=== PATIENT | male | born 1950 ===

== ENCOUNTER 2020-11-25 18:21 | Inpatient (IN) | payer OTHER ==
[~2020-11-25] VITALS: Ht 154.9 cm; Wt 47.3 kg
[2020-11-25] MEDS ORDERED: HYDROMORPHONE 1 MG/1 ML DISP.SYRIN IV ONE ×2 (18:30→19:15)
[2020-11-25] MEDS ORDERED: IV NORMAL SALINE 500 ML BAG IV ONE (18:30)
[2020-11-25] MEDS ORDERED: ONDANSETRON 4 MG/2 ML VIAL IV ONE (18:30)
[2020-11-25] MEDS ORDERED: FERR325T30 PO (18:33)
[2020-11-25] MEDS ORDERED: AMLO10TA4 PO (18:33)
[2020-11-25] MEDS ORDERED: TRAM50TA2 PO (18:33)
[2020-11-25] MEDS ORDERED: QUET50TA PO (18:33)
[2020-11-25] MEDS ORDERED: SITA100T PO (18:33)
[2020-11-25] MEDS ORDERED: CARV6.25 PO (18:33)
[2020-11-25] MEDS ORDERED: ASPI81TA31 PO (18:33)
[2020-11-25] MEDS ORDERED: ISOS60TA72 PO (18:33)
[2020-11-25] MEDS ORDERED: PANT40TA2 PO (18:33)
[2020-11-25] MEDS ORDERED: MEMA10TA PO (18:33)
[2020-11-25] MEDS ORDERED: HYDR-4077 PO (18:33)
[2020-11-25] MEDS ORDERED: ATOR10TA PO (18:33)
[2020-11-25] MEDS ORDERED: HYDROMORPHONE 2 MG/1 ML DISP.SYRIN ONE (18:40)
[2020-11-25] MEDS ORDERED: ONDANSETRON 4 MG/2 ML VIAL ONE (18:40)
[2020-11-25 18:43] LABS: BASOPHILS % (AUTO) 0.6 % (0.0-2.0); EOSINOPHILS # (AUTO) 0.1 K/uL (0.0-0.7); LYMPHOCYTES # (AUTO) 0.6 K/uL (20.0-40.0); NEUTROPHILS # (AUTO) 4.6 K/uL (1.8-8.9)
[2020-11-25 18:45] LABS: EOSINOPHILS % (AUTO) 1.2 % (0.0-7.0); LYMPHOCYTES % (AUTO) 9.6 % (20.5-51.5); MEAN CORPUSCULAR HEMOGLOBIN 32.3 uug (23.8-33.4); MEAN CORPUSCULAR HGB CONC 33 g/dL (32.5-36.3); MEAN CORPUSCULAR VOLUME 97.9 fL (73.0-96.2); MONOCYTES # (AUTO) 0.6 K/uL (2.0-10.0); MONOCYTES % (AUTO) 10.2 % (0.0-11.0); NEUTROPHILS % (AUTO) 78.4 % (38.5-71.5); PLATELET COUNT (AUTO) 169 K/uL (152-348); WHITE BLOOD COUNT (AUTO) 5.9 K/uL (3.6-10.2)
[2020-11-25 18:49] LABS: CARBON DIOXIDE 15 mmol/L (21-32); CHLORIDE 106 mmol/L (98-107); CREATININE 2.5 mg/dL (0.6-1.3); GLUCOSE 182 mg/dL (74-106); UREA NITROGEN, BLOOD 36 mg/dL (7-18)
[2020-11-25 18:56] LABS: ALANINE AMINOTRANSFERASE 21 U/L (16-63); ALKALINE PHOSPHATASE 163 U/L (50-136); ASPARTATE AMINOTRANSFERASE 20 U/L (15-37); BILIRUBIN,DIRECT 0.1 mg/dL (0.0-0.2); BILIRUBIN,TOTAL 0.3 mg/dL (0.2-1.0); TOTAL PROTEIN, SERUM 6.8 g/dL (6.4-8.2)
[2020-11-25 18:57] LABS: RED BLOOD CELL COUNT(AUTO) 1.78 MIL/uL (4.06-5.63)
[2020-11-25 18:58] LABS: HEMATOCRIT 17.4 % (36.7-47.1); HEMOGLOBIN 5.8 g/dL (12.5-16.3)
--- NOTE | 2020-11-25 19:00 | NUR ---
Hgb: 5.8, Hct: 17.[address] Cadena aware. [facility] paged for Dr Cadena. Dr Newman will call back.
--- NOTE | 2020-11-25 19:05 | NUR ---
Recieved reprt from Bernice CHRISTIANSON
[2020-11-25 19:23] LABS: BASOPHILS % (AUTO) 0.7 % (0.0-2.0); EOSINOPHILS # (AUTO) 0.1 K/uL (0.0-0.7); EOSINOPHILS % (AUTO) 1.3 % (0.0-7.0); LYMPHOCYTES # (AUTO) 0.6 K/uL (20.0-40.0); LYMPHOCYTES % (AUTO) 8.9 % (20.5-51.5); MEAN CORPUSCULAR HEMOGLOBIN 32.6 uug (23.8-33.4); MEAN CORPUSCULAR HGB CONC 34 g/dL (32.5-36.3); MEAN CORPUSCULAR VOLUME 96.2 fL (73.0-96.2); MONOCYTES # (AUTO) 0.7 K/uL (2.0-10.0); MONOCYTES % (AUTO) 9.8 % (0.0-11.0); NEUTROPHILS # (AUTO) 5.5 K/uL (1.8-8.9); NEUTROPHILS % (AUTO) 79.3 % (38.5-71.5); PLATELET COUNT (AUTO) 207 K/uL (152-348); RED BLOOD CELL COUNT(AUTO) 2.16 MIL/uL (4.06-5.63)
[2020-11-25 19:26] LABS: HEMATOCRIT 20.8 % (36.7-47.1); HEMOGLOBIN 7.1 g/dL (12.5-16.3)
--- NOTE | 2020-11-25 19:46 | NUR ---
Called to request bed for telemetry status
--- NOTE | 2020-11-25 19:49 | NUR ---
Paged Dr. Natarajan on-call for pt's Lt hip fx.
--- NOTE | 2020-11-25 19:53 | NUR ---
Dr. Cadena spoke with Dr. Natarajan.
[2020-11-25] MEDS ORDERED: INSULIN REGULAR, HUMAN 300 UNIT/3 ML VIAL IV ONE (20:15)
[2020-11-25] MEDS ORDERED: DEXTROSE 50% 50 ML DISP.SYRIN IV ONE (20:15)
[2020-11-25] MEDS ORDERED: SODIUM POLYSTYRENE SULFONATE 15 G/60 ML LIQUID UDC PO ONE (20:15)
[2020-11-25] MEDS ORDERED: INSULIN REGULAR, HUMAN 300 UNIT/3 ML VIAL ONE (20:20)
[2020-11-25] MEDS ORDERED: DEXTROSE 50% 50 ML DISP.SYRIN ONE (20:20)
[2020-11-25] MEDS ORDERED: SODIUM POLYSTYRENE SULFONATE 15 G/60 ML LIQUID UDC ONE (20:47)
--- NOTE | 2020-11-25 20:56 | NUR ---
SBAR report given to Dianelys CHRISTIANSON
--- NOTE | 2020-11-25 20:57 | NUR ---
pt refused for nurse to look at sacral coccyx area, no open wounds or abrasions noted to heels or dara prominces.
--- NOTE | 2020-11-25 21:19 | NUR ---
Pt taken to Tele unit via gurney. Gama catheter inserted prior to pt transfer.
--- NOTE | 2020-11-25 21:20 | NUR ---
Admitted a 70 years old male with DX of Left femur fracture and Anemia. Patient AAOx3, Mongolian speaking but able to understand and speak little East Timorese. In no acute distress. Denies any pain or SOB at this time. Some pain with movement but relieved with immobility. IV site on right FA intact and patient. Patient due for blood transfusion of 1 unit PRBC and will provide it. Gama catheter intact and draining via gravity. NSR on tele at 65/min. Routine admission care done. Plan of care initiated. Safety measure initiated and call aponte within reached.
[2020-11-25 22:00] VITALS: BP 106/65
[2020-11-25 22:15] VITALS: BP 109/48
[2020-11-25 22:30] VITALS: BP 107/48
[2020-11-25 22:45] VITALS: BP 115/48
[2020-11-25 23:15] VITALS: BP 122/49
[2020-11-25 23:45] VITALS: BP 111/57
[2020-11-26] VITALS (8 sets, daily range): BP systolic 106–137; BP diastolic 43–65
[2020-11-26] MEDS: MORPHINE SULFATE 2 MG/1 ML DISP.SYRIN IV PRN ×4 (00:07→16:25)
--- NOTE | 2020-11-26 01:00 | NUR ---
Noted patient vasquez catheter pulled out. Tried to reinsert new vasquez catheter but unsuccessful, felt resistance. Will try to reinsert during the day.
--- NOTE | 2020-11-26 01:00 | NUR ---
Blood transfusion of 1 unit PRBC completed. No adverse reaction noted.
--- NOTE | 2020-11-26 05:56 | NUR ---
AAOx3. In no acute distress. Denies any SOB. Morphine 2mg IV given for complain of left hip pain and with helped. IV site on right FA remains intact and patient. NSR on tele at 71/min. Needs attended to and met. Safety measure maintained and call aponte within reached.
--- NOTE | 2020-11-26 08:00 | NUR ---
PT seen and clear by second language tutor Dr. Bonds.
[2020-11-26] MEDS ORDERED: ACETAMINOPHEN 650 MG SUPP.RECT RC PRN (08:15)
[2020-11-26] MEDS ORDERED: ONDANSETRON 4 MG/2 ML VIAL IV PRN (08:15)
[2020-11-26] MEDS: ISOSORBIDE MONONITRATE 30 MG TAB.SR.24H PO SCH (08:37)
[2020-11-26] MEDS: FERROUS SULFATE 325 MG TABEC PO SCH (08:37)
[2020-11-26] MEDS: MEMANTINE HCL 5 MG TABLET PO SCH ×2 (08:38→16:24)
[2020-11-26] MEDS: hydrALAZINE HCL 50 MG TABLET PO SCH ×2 (08:38→16:24)
[2020-11-26] MEDS: CARVEDILOL 6.25 MG TABLET PO SCH ×2 (08:38→17:33)
[2020-11-26] MEDS: PANTOPRAZOLE SODIUM 40 MG VIAL IV SCH (08:39)
[2020-11-26 09:00] LABS: BASOPHILS % (AUTO) 0.2 % (0.0-2.0); EOSINOPHILS % (AUTO) 0.2 % (0.0-7.0); HEMATOCRIT 27.6 % (36.7-47.1); HEMOGLOBIN 9.4 g/dL (12.5-16.3); LYMPHOCYTES # (AUTO) 0.6 K/uL (20.0-40.0); LYMPHOCYTES % (AUTO) 5.8 % (20.5-51.5); MEAN CORPUSCULAR HEMOGLOBIN 31.7 uug (23.8-33.4); MEAN CORPUSCULAR HGB CONC 34 g/dL (32.5-36.3); MEAN CORPUSCULAR VOLUME 92.8 fL (73.0-96.2); MONOCYTES # (AUTO) 0.7 K/uL (2.0-10.0); MONOCYTES % (AUTO) 6.8 % (0.0-11.0); NEUTROPHILS # (AUTO) 9.2 K/uL (1.8-8.9); PLATELET COUNT (AUTO) 196 K/uL (152-348); RED BLOOD CELL COUNT(AUTO) 2.97 MIL/uL (4.06-5.63); WHITE BLOOD COUNT (AUTO) 10.6 K/uL (3.6-10.2)
[2020-11-26] MEDS ORDERED: MEMANTINE HCL 10 MG TABLET PO SCH (09:00)
[2020-11-26] MEDS ORDERED: AMLODIPINE 10 MG TABLET PO SCH (09:00)
[2020-11-26] MEDS ORDERED: ISOSORBIDE MONONITRATE 60 MG TAB.SR.24H PO SCH (09:00)
[2020-11-26] MEDS ORDERED: PANTOPRAZOLE SODIUM 40 MG TABLET.DR PO SCH (09:00)
[2020-11-26 09:18] LABS: ALANINE AMINOTRANSFERASE 20 U/L (16-63); ALKALINE PHOSPHATASE 153 U/L (50-136); ASPARTATE AMINOTRANSFERASE 18 U/L (15-37); BILIRUBIN,TOTAL 0.6 mg/dL (0.2-1.0); CARBON DIOXIDE 16 mmol/L (21-32); CHLORIDE 107 mmol/L (98-107); CREATININE 2.6 mg/dL (0.6-1.3); GLUCOSE 132 mg/dL (74-106); MAGNESIUM 2.2 mg/dL (1.8-2.4); PHOSPHOROUS 4.8 mg/dL (2.5-4.9); POTASSIUM 4.6 mmol/L (3.5-5.1); TOTAL PROTEIN, SERUM 6.5 g/dL (6.4-8.2); UREA NITROGEN, BLOOD 36 mg/dL (7-18)
[2020-11-26 09:25] LABS: THYROID STIMULATING HORMONE 1.458 mIU/mL (0.358-3.740)
[2020-11-26 09:42] LABS: CHOLESTEROL 109 mg/dL (<200); HDL CHOLESTEROL 45 mg/dL (40-60); TRIGLYCERIDES 40 MG/DL (30-150)
--- NOTE | 2020-11-26 10:00 | NUR ---
A call from OR. staff and as informed pt. will undergo surgery tomorrow at around [address] Natarajan's call with orders.
--- NOTE | 2020-11-26 10:54 | NUR ---
Patient completely immobile lying on his right side, avoiding to be moved, pt. educated on side effects of immobility. High risk to develop pressure sores. Patient been medicated around the clock for pain. At this time refusing to have a vasquez catheter inserted.
--- NOTE | 2020-11-26 11:18 | NUR ---
WOUND CARE CONSULT: PT REFUSED TO TURN FOR FULL SKIN ASSESSMENT. PT LYING ON HIS RT SIDE. RT 3RD TOE NOTED TO HAVE DISCOLORATION, PRESENT ON ADMISSION. RECOMMEND DPM CONSULT. DR DENNY NOTIFIED OF CONSULT REQUEST. RECOMMENDATIONS MADE FOR SKIN PROTECTION. DISCUSSED WITH NURSING STAFF. MD IN AGREEMENT WITH PLAN OF CARE.
[2020-11-26] MEDS ORDERED: MINERAL OIL/PETROLATUM,WHITE 57 GM TUBE TOP PRN (16:30)
[2020-11-26] MEDS: QUETIAPINE FUMARATE 25 MG TABLET PO SCH (17:33)
--- NOTE | 2020-11-26 18:56 | NUR ---
pt. left in bed resting. Neurowise, AAOx2. vitals stable. Medicated for pain., pt. barely tolerating to be repositioned and refusing. Gama catheter to gravity. To be placed NPO past MN as ordered by attending Dr. Downey.
--- NOTE | 2020-11-26 18:58 | NUR ---
Patient left in bed sleeping, neuro-clifford following commands, and compliant with medications. Hemodynamically stable, sbp within desired limits. Afebrile. Tolerating diet well with no n/v/or D. No pressure sores, 1:1 sitter at bedside.
--- NOTE | 2020-11-26 20:30 | NUR ---
Patient in bed alert and able to make needs known. Greenlandic speaking. Denies pain at this time. No s/s of distress noted. On RA.Gama catheter draining well with clear urine output.Iv on left FA patent and intact.Obtained consent via phone from patient's brother Gigi [phone] for Left hip ORIF tomorrow. Patient made aware and will place NPO after midnight.Will continue to to monitor.
[2020-11-26] MEDS: ATORVASTATIN 10 MG TABLET PO SCH (20:41)
[2020-11-26] MEDS: ACETAMINOPHEN 325 MG TABLET PO PRN (20:41)
[2020-11-27] VITALS (8 sets, daily range): BP systolic 104–139; BP diastolic 47–54
[2020-11-27] MEDS: MORPHINE SULFATE 2 MG/1 ML DISP.SYRIN IV PRN ×5 (04:24→23:47)
[2020-11-27 06:01] LABS: *BILIRUBIN,URIN NEGATIVE (NEGATIVE); *CLARITY,URINE CLEAR (CLEAR); *COLOR,URINE YELLOW (YELLOW); *KETONES,URINE NEGATIVE (NEGATIVE); *UROBILINOGEN,URINE 0.2 E.U./dl (NORMAL); LEUKOCYTE ESTERASE ,URINE NEGATIVE (NEGATIVE); NITRITE, URINE NEGATIVE (NEGATIVE); UGLUCOSE NEGATIVE (NEGATIVE)
[2020-11-27 06:05] LABS: *BLOOD, URINE TRACE (NEGATIVE); BACTERIA,URINE FEW /HPF (NONE SEEN); SQUAMOUS EPITHELIAL CELL,UR FEW /HPF (NONE SEEN)
[2020-11-27 06:06] LABS: MUCUS,URINE FEW /LPF (0-FEW); URINE AMORPHOUS URATE FEW /HPF
[2020-11-27 07:13] LABS: BASOPHILS % (AUTO) 0.5 % (0.0-2.0); EOSINOPHILS # (AUTO) 0.1 K/uL (0.0-0.7); EOSINOPHILS % (AUTO) 0.8 % (0.0-7.0); HEMATOCRIT 24.8 % (36.7-47.1); HEMOGLOBIN 8.7 g/dL (12.5-16.3); LYMPHOCYTES # (AUTO) 0.7 K/uL (20.0-40.0); MEAN CORPUSCULAR HEMOGLOBIN 31.9 uug (23.8-33.4); MEAN CORPUSCULAR HGB CONC 35 g/dL (32.5-36.3); MEAN CORPUSCULAR VOLUME 91.3 fL (73.0-96.2); MONOCYTES # (AUTO) 0.6 K/uL (2.0-10.0); NEUTROPHILS # (AUTO) 6.4 K/uL (1.8-8.9); NEUTROPHILS % (AUTO) 81.7 % (38.5-71.5); PLATELET COUNT (AUTO) 190 K/uL (152-348); RED BLOOD CELL COUNT(AUTO) 2.72 MIL/uL (4.06-5.63); WHITE BLOOD COUNT (AUTO) 7.9 K/uL (3.6-10.2)
[2020-11-27 07:28] LABS: ALANINE AMINOTRANSFERASE 20 U/L (16-63); ALKALINE PHOSPHATASE 131 U/L (50-136); ASPARTATE AMINOTRANSFERASE 21 U/L (15-37); BILIRUBIN,TOTAL 0.5 mg/dL (0.2-1.0); CARBON DIOXIDE 16 mmol/L (21-32); CHLORIDE 108 mmol/L (98-107); GLUCOSE 146 mg/dL (74-106); MAGNESIUM 2.2 mg/dL (1.8-2.4); PHOSPHOROUS 5.8 mg/dL (2.5-4.9); TOTAL PROTEIN, SERUM 6.2 g/dL (6.4-8.2); UREA NITROGEN, BLOOD 44 mg/dL (7-18)
[2020-11-27] MEDS: CARVEDILOL 6.25 MG TABLET PO SCH ×2 (08:00→17:16)
--- NOTE | 2020-11-27 08:00 | NUR ---
received change of shift report, pt in bed resting, complaining of pain 8/10 on the left hip, medications given as ordered. awake alert and oriented x3, Azeri speaking, some Kazakh. pt on Tele monitor NSR, on room air, no signs of distress, pt NPO for surgery today, pt voids via vasquez, IV access onthe left FA 20g, patent, dressing in tact. Call light within reach, bed in low and locked position, fall and safety precautions in place, will continue to monitor.
[2020-11-27] MEDS: hydrALAZINE HCL 50 MG TABLET PO SCH ×2 (08:11→17:15)
[2020-11-27] MEDS: FERROUS SULFATE 325 MG TABEC PO SCH (08:12)
[2020-11-27] MEDS: MEMANTINE HCL 5 MG TABLET PO SCH ×2 (08:12→17:13)
[2020-11-27] MEDS: ISOSORBIDE MONONITRATE 30 MG TAB.SR.24H PO SCH (08:12)
[2020-11-27] MEDS ORDERED: POLYMYXIN B SULFATE 500,000 UNITS, BACITRACIN 50,000 UNITS, NORMAL SALINE 20 ML MC ONE (08:15)
[2020-11-27] MEDS: PANTOPRAZOLE SODIUM 40 MG VIAL IV SCH (08:42)
[2020-11-27] MEDS ORDERED: SEVOFLURANE 250 ML BOTTLE ONE (09:31)
[2020-11-27] MEDS ORDERED: FENTANYL CITRATE 250 MCG/5 ML AMPUL ONE (09:36)
[2020-11-27] MEDS ORDERED: MIDAZOLAM HCL 2 MG/2 ML VIAL ONE (09:36)
[2020-11-27] MEDS ORDERED: ROCURONIUM BROMIDE 50 MG/5 ML VIAL ONE (09:37)
[2020-11-27] MEDS ORDERED: BUPIVACAINE 0.25% 30 ML VIAL ONE (10:24)
--- NOTE | 2020-11-27 10:35 | NUR ---
pt left for surgery
[2020-11-27] MEDS ORDERED: VANCOMYCIN 1000 MG VIAL ONE (10:49)
--- NOTE | 2020-11-27 11:00 | NUR ---
combination medication given to pt in surgery.
--- NOTE | 2020-11-27 14:00 | NUR ---
pt back from surgery, in bed resting, no reports of pain at this time, no signs of distress noted. vitals WNL. Will continue to monitor. Addendum: 11/27/20 at 1434 by CUAUHTEMOC QUINTANILLA RN pt had a ORIF of the left femur, hydrogel dressing over the incision, pr able to resume diet per MD. Pt evaluation ordered for s/p surgery, 25% weight bearing.
[2020-11-27] MEDS: IV D5W-0.45% NS +20 KCL 1,000 ML IV PRN (16:51)
[2020-11-27] MEDS: QUETIAPINE FUMARATE 25 MG TABLET PO SCH (17:13)
--- NOTE | 2020-11-27 18:45 | NUR ---
pt in bed resting, awake alert orientation x3 lao speaking, pt has swathi upper extremity bruising, scratches on the swathi lower shins, pt on tele monitor NSR, on room air, no signs of distress, no reports of pain at this time. ORIF of the left femur done today 11/27/2020. hydrogel dressing in tact, pt sleeping, easily arousable, on renal diet, voids via vasquez, IV access on the left FA 20g, IVF infusing at 75cc. bed in low and locked position ,call light within reach, will endorse to oncoming nurse.
[2020-11-27] MEDS: ATORVASTATIN 10 MG TABLET PO SCH (20:42)
--- NOTE | 2020-11-27 21:55 | NUR ---
Patient awake c/o left hip S/p Intramedullary nailing of left intertrochanteric hip fracture.Surgical site with hydrogel in place.No active bleeding noted. Morphine IVP given with good result.Gama catheter draining well. IV on left FA patent and intact with D5 1/2NS with 20 meq KCL running at 75 ml/hr.Tolerated well. Adm IV ATB as ordered .No a/r noted. Will continue to monitor.Call light with in reach.
[2020-11-27] MEDS ORDERED: CEFAZOLIN 1 G in IV DEXTROSE 5% 50 ML IV SCH (23:30)
[2020-11-28] VITALS (19 sets, daily range): BP systolic 88–150; BP diastolic 37–59
[2020-11-28] MEDS: ACETAMINOPHEN 325 MG TABLET PO PRN (04:50)
[2020-11-28] MEDS: IV D5W-0.45% NS +20 KCL 1,000 ML IV PRN (04:58)
[2020-11-28 06:58] LABS: BASOPHILS % (AUTO) 0.3 % (0.0-2.0); EOSINOPHILS % (AUTO) 0.2 % (0.0-7.0); LYMPHOCYTES # (AUTO) 0.6 K/uL (20.0-40.0); LYMPHOCYTES % (AUTO) 7.6 % (20.5-51.5); MEAN CORPUSCULAR HEMOGLOBIN 31.7 uug (23.8-33.4); MEAN CORPUSCULAR HGB CONC 35 g/dL (32.5-36.3); MONOCYTES # (AUTO) 0.6 K/uL (2.0-10.0); MONOCYTES % (AUTO) 7.4 % (0.0-11.0); NEUTROPHILS # (AUTO) 6.3 K/uL (1.8-8.9); NEUTROPHILS % (AUTO) 84.5 % (38.5-71.5); PLATELET COUNT (AUTO) 152 K/uL (152-348); WHITE BLOOD COUNT (AUTO) 7.5 K/uL (3.6-10.2)
[2020-11-28 07:00] LABS: RED BLOOD CELL COUNT(AUTO) 2.11 MIL/uL (4.06-5.63)
[2020-11-28 07:05] LABS: HEMOGLOBIN 6.7 g/dL (12.5-16.3)
[2020-11-28 07:06] LABS: HEMATOCRIT 19.4 % (36.7-47.1)
[2020-11-28 07:10] LABS: ALANINE AMINOTRANSFERASE 14 U/L (16-63); ALKALINE PHOSPHATASE 96 U/L (50-136); ASPARTATE AMINOTRANSFERASE 23 U/L (15-37); BILIRUBIN,TOTAL 0.3 mg/dL (0.2-1.0); CARBON DIOXIDE 16 mmol/L (21-32); CHLORIDE 112 mmol/L (98-107); CREATINE KINASE, TOTAL 596 U/L (39-308); CREATININE 2.8 mg/dL (0.6-1.3); GLUCOSE 187 mg/dL (74-106); PHOSPHOROUS 5.1 mg/dL (2.5-4.9); TOTAL PROTEIN, SERUM 5.1 g/dL (6.4-8.2); UREA NITROGEN, BLOOD 44 mg/dL (7-18)
[2020-11-28] MEDS: CARVEDILOL 6.25 MG TABLET PO SCH ×2 (08:00→17:04)
[2020-11-28 08:07] LABS: BAND % (MANUAL) 2 % (0-10); LYMPHOCYTES % (MANUAL) 13 % (20-40); MONOCYTES % (MANUAL) 3 % (2-10); NEUTROPHILS % (MANUAL) 82 % (42-75)
[2020-11-28] MEDS: PANTOPRAZOLE SODIUM 40 MG VIAL IV SCH (08:10)
[2020-11-28] MEDS: FERROUS SULFATE 325 MG TABEC PO SCH (08:13)
[2020-11-28] MEDS: ISOSORBIDE MONONITRATE 30 MG TAB.SR.24H PO SCH (08:13)
[2020-11-28] MEDS: hydrALAZINE HCL 50 MG TABLET PO SCH ×2 (08:14→17:00)
[2020-11-28] MEDS: MEMANTINE HCL 5 MG TABLET PO SCH ×2 (08:18→17:05)
--- NOTE | 2020-11-28 08:45 | NUR ---
reported hemoglobin to dr hirsch, with order to transfuse 2 units of PRBCs, no distress noted
[2020-11-28] MEDS: HYDROCODONE/APAP 10-325 MG TABLET PO PRN ×2 (09:38→15:29)
--- NOTE | 2020-11-28 12:00 | NUR ---
patient blood pressure fluctuating, systolic from 88 to 128, MD Downey made aware, ok to continue transfusion, no crackles in lungs noted upon auscultation, no sob, respirations are even nonlabored, no jugular vein distension noted, no rash noted, patient denied any itch as well, patient stated he feels fine. continue to monitor patient closely through out the blood transfusion for any other changes,
--- NOTE | 2020-11-28 14:00 | NUR ---
one unit of PRBC infused, no reactions noted, patient tolerated well Addendum: 11/28/20 at 1509 by MARY RODRIGUEZ RN, RN no distress noted, no crackles noted upon auscultation, no jugular vein distension noted, no sob, resp even nonlabored, skin warm and dry to touch.
[2020-11-28] MEDS: QUETIAPINE FUMARATE 25 MG TABLET PO SCH (17:05)
--- NOTE | 2020-11-28 19:06 | NUR ---
2 unit PRBCs infused, tolerated well, incision site dressing is intact, no bleeding noted, no distress noted
[2020-11-28] MEDS: ATORVASTATIN 10 MG TABLET PO SCH (20:02)
[2020-11-29] VITALS: BP 160/63
[2020-11-29] MEDS: MORPHINE SULFATE 2 MG/1 ML DISP.SYRIN IV PRN ×3 (00:15→09:36)
[2020-11-29] MEDS: IV D5W-0.45% NS +20 KCL 1,000 ML IV PRN (00:45)
[2020-11-29 04:00] VITALS: BP 155/56
[2020-11-29 06:15] LABS: BASOPHILS % (AUTO) 0.2 % (0.0-2.0); EOSINOPHILS # (AUTO) 0.2 K/uL (0.0-0.7); EOSINOPHILS % (AUTO) 2.4 % (0.0-7.0); HEMATOCRIT 28.6 % (36.7-47.1); HEMOGLOBIN 9.8 g/dL (12.5-16.3); LYMPHOCYTES # (AUTO) 0.4 K/uL (20.0-40.0); LYMPHOCYTES % (AUTO) 4.8 % (20.5-51.5); MEAN CORPUSCULAR HEMOGLOBIN 30.6 uug (23.8-33.4); MEAN CORPUSCULAR HGB CONC 34 g/dL (32.5-36.3); MEAN CORPUSCULAR VOLUME 89.5 fL (73.0-96.2); MONOCYTES # (AUTO) 0.7 K/uL (2.0-10.0); MONOCYTES % (AUTO) 7.4 % (0.0-11.0); NEUTROPHILS # (AUTO) 7.6 K/uL (1.8-8.9); NEUTROPHILS % (AUTO) 85.2 % (38.5-71.5); PLATELET COUNT (AUTO) 148 K/uL (152-348); RED BLOOD CELL COUNT(AUTO) 3.19 MIL/uL (4.06-5.63); WHITE BLOOD COUNT (AUTO) 8.9 K/uL (3.6-10.2)
[2020-11-29 06:36] LABS: ALANINE AMINOTRANSFERASE 7 U/L (16-63); ALKALINE PHOSPHATASE 109 U/L (50-136); ASPARTATE AMINOTRANSFERASE 38 U/L (15-37); BILIRUBIN,TOTAL 0.6 mg/dL (0.2-1.0); CARBON DIOXIDE 16 mmol/L (21-32); CHLORIDE 103 mmol/L (98-107); CREATININE 2.5 mg/dL (0.6-1.3); GLUCOSE 161 mg/dL (74-106); PHOSPHOROUS 3.3 mg/dL (2.5-4.9); POTASSIUM 4.6 mmol/L (3.5-5.1); TOTAL PROTEIN, SERUM 5.5 g/dL (6.4-8.2); UREA NITROGEN, BLOOD 44 mg/dL (7-18)
--- NOTE | 2020-11-29 06:49 | NUR ---
Pt slept thorughout the night. Morphine for pain as needed. Denies SOB. No acute distress at this time. SR on monitor. Bed is locked and in lowest position, call light within reach. No other issues or concerns at this time.
--- NOTE | 2020-11-29 07:30 | NUR ---
Awake, alert, oriented x 3, anxious, pain relieved at this time. On moderate high back rest, O2 at 2L/NC. IVF infusing. Left hip dressing clean and dry.
[2020-11-29] MEDS ORDERED: PANTOPRAZOLE SODIUM 40 MG TABLET.DR PO SCH (09:00)
[2020-11-29] MEDS: FERROUS SULFATE 325 MG TABEC PO SCH (09:33)
[2020-11-29] MEDS: CARVEDILOL 6.25 MG TABLET PO SCH ×2 (09:33→17:25)
[2020-11-29] MEDS: hydrALAZINE HCL 50 MG TABLET PO SCH ×2 (09:33→17:00)
[2020-11-29] MEDS: MEMANTINE HCL 5 MG TABLET PO SCH ×2 (09:34→17:24)
[2020-11-29] MEDS: ISOSORBIDE MONONITRATE 30 MG TAB.SR.24H PO SCH (09:34)
[2020-11-29] MEDS: HYDROCODONE/APAP 10-325 MG TABLET PO PRN ×2 (10:52→14:10)
--- NOTE | 2020-11-29 11:00 | NUR ---
PT at bedside. Patient anxious, able to sit and dangle at edge of bad
[2020-11-29 12:15] VITALS: BP 132/56
[2020-11-29] MEDS: GLUCERNA SHAKE VANILLA 237 ML CAN PO SCH ×2 (13:00→17:26)
--- NOTE | 2020-11-29 14:00 | NUR ---
IVF discontinued. Gama catheter discontinued, due to void
[2020-11-29] MEDS ORDERED: NEOSTIGMINE METHYLSULFATE 10 MG/10 ML VIAL IV ONE (15:16)
[2020-11-29] MEDS ORDERED: ONDANSETRON 4 MG/2 ML VIAL IV ONE (15:16)
[2020-11-29] MEDS ORDERED: GLYCOPYRROLATE 0.2 MG/ML VIAL MC ONE (15:16)
[2020-11-29] MEDS ORDERED: METOCLOPRAMIDE HCL 10 MG/2 ML VIAL IV ONE (15:16)
[2020-11-29] MEDS ORDERED: PROPOFOL 200 MG/20 ML BOTTLE IV ONE (15:16)
[2020-11-29] MEDS ORDERED: CEFAZOLIN 1 G VIAL MC ONE (15:16)
[2020-11-29 16:06] VITALS: BP 104/52
[2020-11-29] MEDS: QUETIAPINE FUMARATE 25 MG TABLET PO SCH (17:24)
--- NOTE | 2020-11-29 18:32 | NUR ---
Encouraged to eat more and drink supplement. Resting comfortably after dinner
[2020-11-29 19:56] VITALS: BP 146/56
--- NOTE | 2020-11-29 20:00 | NUR ---
PATIENT ALERT ORIENTED, NO SOB NO CHEST PAIN, PATIENT DIAPER WAS WET, NO COMPLAIN OF BLADDER DISTENTION OR PAIN, LEFT HIP DRESSING INTACT, NO COMPLAIN OF PAIN, CONT TO MONITOR.
[2020-11-29] MEDS: ATORVASTATIN 10 MG TABLET PO SCH (21:12)
--- NOTE | 2020-11-30 00:30 | NUR ---
PATIENT DIAPER WAS CHECK, WITH SMALL AMOUNT OF URINE NOTED, NO COMPLAIN OF PAIN, CONT TO MONITOR.
[2020-11-30 04:55] VITALS: BP 146/53
[2020-11-30] MEDS: ACETAMINOPHEN 325 MG TABLET PO PRN (05:01)
--- NOTE | 2020-11-30 06:00 | NUR ---
PATIENT COMPLAIN OF ABDOMINAL PAIN, NOTED, ABDOMEN HARD TO TOUCH, OFFERED URINAL TO THUS TO ENCOURAGE TO URINE BUT CANNOT, BLADDER SCAN DONE WITH LARGE AMOUNT OF URINE NOTED, WILL NOTIFY MD.
--- NOTE | 2020-11-30 06:21 | NUR ---
PATIENT RETAINING URINE, UNABLE TO EMPTY THE BLADDER, BLADDER SCAN DID AFTER URINATION WITH 800CC URINE ON THE BLADDER, [employer] NOTIFY WITH ORDER.
[2020-11-30 06:31] LABS: BASOPHILS % (AUTO) 0.3 % (0.0-2.0); EOSINOPHILS # (AUTO) 0.2 K/uL (0.0-0.7); EOSINOPHILS % (AUTO) 1.8 % (0.0-7.0); HEMATOCRIT 29.8 % (36.7-47.1); LYMPHOCYTES # (AUTO) 0.4 K/uL (20.0-40.0); MEAN CORPUSCULAR HEMOGLOBIN 30.2 uug (23.8-33.4); MEAN CORPUSCULAR HGB CONC 34 g/dL (32.5-36.3); MONOCYTES # (AUTO) 0.6 K/uL (2.0-10.0); MONOCYTES % (AUTO) 6.9 % (0.0-11.0); NEUTROPHILS # (AUTO) 8.1 K/uL (1.8-8.9); PLATELET COUNT (AUTO) 163 K/uL (152-348); RED BLOOD CELL COUNT(AUTO) 3.31 MIL/uL (4.06-5.63); WHITE BLOOD COUNT (AUTO) 9.3 K/uL (3.6-10.2)
[2020-11-30 06:47] LABS: CARBON DIOXIDE 15 mmol/L (21-32); CHLORIDE 105 mmol/L (98-107); CREATININE 2.1 mg/dL (0.6-1.3); GLUCOSE 119 mg/dL (74-106); MAGNESIUM 1.8 mg/dL (1.8-2.4); PHOSPHOROUS 3.1 mg/dL (2.5-4.9); UREA NITROGEN, BLOOD 43 mg/dL (7-18)
[2020-11-30] MEDS ORDERED: PANTOPRAZOLE SODIUM 40 MG TABLET.DR PO SCH (07:00)
[2020-11-30] MEDS: ISOSORBIDE MONONITRATE 30 MG TAB.SR.24H PO SCH (08:12)
[2020-11-30] MEDS: FERROUS SULFATE 325 MG TABEC PO SCH (08:12)
[2020-11-30] MEDS: hydrALAZINE HCL 50 MG TABLET PO SCH (08:12)
[2020-11-30] MEDS: CARVEDILOL 6.25 MG TABLET PO SCH (08:13)
[2020-11-30] MEDS: MEMANTINE HCL 5 MG TABLET PO SCH (08:13)
[2020-11-30] MEDS: GLUCERNA SHAKE VANILLA 237 ML CAN PO SCH ×2 (08:28→12:15)
[2020-11-30 12:00] VITALS: BP 144/69
--- NOTE | 2020-11-30 16:05 | NUR ---
DC ORDERS RECEIVED NOTED AND CARRIED OUT,DC INSTRUCTION AND RN REPORT GIVEN TO CORINNA BOWLES PER MD ORDERS,PT LEFT THE FACILITY VIA AMBULANCES WITH THE FOLLY CATHETER IN STABLE CONDITION
== END 2020-11-30 16:22 | DRG 480 ==
LOC: ER 18:23 → TELE3 20:59 → MEDSURG3 11-29 08:25
PROVIDERS: ADMIT Internal Medicine
PROC: 30233N1 Transfusion of Nonautologous Red Blood Cells into Peripheral Vein, Percutaneous Approach (ICD-10-PCS; principal; 2020-11-25)
PROC: 0QS706Z Reposition Left Upper Femur with Intramedullary Internal Fixation Device, Open Approach (ICD-10-PCS; 2020-11-27)
DX: S72.142A Displaced intertrochanteric fracture of left femur, initial encounter for closed fracture (principal); N17.0 Acute kidney failure with tubular necrosis; D68.69 Other thrombophilia; D62 Acute posthemorrhagic anemia; E87.1 Hypo-osmolality and hyponatremia; M62.82 Rhabdomyolysis; W18.30XA Fall on same level, unspecified, initial encounter; E87.5 Hyperkalemia; F01.50 Vascular dementia, unspecified severity, without behavioral disturbance, psychotic disturbance, mood disturbance, and anxiety; Z20.822 Contact with and (suspected) exposure to COVID-19; Y92.099 Unspecified place in other non-institutional residence as the place of occurrence of the external cause; D53.9 Nutritional anemia, unspecified; E78.5 Hyperlipidemia, unspecified; I25.10 Atherosclerotic heart disease of native coronary artery without angina pectoris; I70.0 Atherosclerosis of aorta; Z79.82 Long term (current) use of aspirin; Z87.440 Personal history of urinary (tract) infections; Z91.81 History of falling; M79.672 Pain in left foot; D63.1 Anemia in chronic kidney disease; I12.9 Hypertensive chronic kidney disease with stage 1 through stage 4 chronic kidney disease, or unspecified chronic kidney disease; Z74.09 Other reduced mobility; E11.22 Type 2 diabetes mellitus with diabetic chronic kidney disease
CPT/HCPCS: 36415; 51702; 70030-TC; 71045; 72170; 73502; 73503; 76770; 82652; 83735; 83970; 84100; 84155; 84165; 84443; 85025; 85730; 86850; 86900; 86901; 86920; 87086; 93005; 93307; A4649; A4663; C1713; C9113; G0378; J0690; J1170; J1815; J2250; J2270; J2405; J2765; J3010; J3370; J3490; J7040; J7060; P9016-BL; P9021